=== PATIENT | male | born 1970 | race Caucasian/White ===

== ENCOUNTER 2022-05-17 12:22 | Outpatient (CLI) | payer OTHER, SELFPAY | END 2022-05-17 12:23 | disposition home or self-care (01) | LOC: LAB 12:26 | PROVIDERS: PCP Electrodiagnostic Medicine; Visit Provider Urology | DX: R97.20 Elevated prostate specific antigen [PSA] (principal) | CPT/HCPCS: 36415; 84153 ==

== ENCOUNTER → 2022-05-19 12:29 | Outpatient (BNVA) | payer OTHER, SELFPAY | PROVIDERS: PCP Electrodiagnostic Medicine; Visit Provider Urology | DX: R97.20 Elevated prostate specific antigen [PSA] (principal) | CPT/HCPCS: 81003 ==

== ENCOUNTER 2022-12-18 13:23 | Outpatient (CLI) | payer OTHER, SELFPAY ==
[2022-12-18 14:28] LABS: Prostate Specific AG Urology 4.95 ng/mL (0-4)
== END 2022-12-18 13:24 | disposition home or self-care (01) ==
LOC: LAB 13:26
PROVIDERS: PCP Electrodiagnostic Medicine; Visit Provider Urology
DX: R97.20 Elevated prostate specific antigen [PSA] (principal)
CPT/HCPCS: 84153

== ENCOUNTER → 2022-12-26 15:33 | Outpatient (BNVA) | payer OTHER, SELFPAY | PROVIDERS: PCP Electrodiagnostic Medicine; Visit Provider Urology | DX: R97.20 Elevated prostate specific antigen [PSA] (principal) | CPT/HCPCS: 81003 ==

== ENCOUNTER 2023-09-19 12:30 | Outpatient (CLI) | payer OTHER, SELFPAY ==
--- NOTE | 2023-09-19 13:00 | MR_ITS ---
WS: [id number] MRI LEFT HIP WITHOUT CONTRAST. COMPARISON: 08/06/2023 Multiplanar, multisequence imaging is performed without contrast. Moderate to severe narrowing of the joint space of the LEFT hip. There is loss of cartilage. No signi ficant remodeling of the femoral head at this time. There is marrow edema extending from the superior medial femoral head inferiorly through the neck of the femur. There is bone upon bone of the superio r femoral head and acetabulum. There are adjacent corresponding to areas of marrow edema in the aceta bulum and also the femoral head. No typical changes for osteonecrosis. Mild osteophytic ridging aroun d the acetabulum. There is also small amount of increased fluid in the joint space as compared to the RIGHT hip. No definite labral tear is identified. No muscle edema or atrophy. IMPRESSION: 1. Moderate osteoarthritic changes involving the LEFT hip joint. 2. Marrow edema involving the femoral head and neck and extending into the acetabulum where there is bone upon bone contact. Loss of the cartilage surrounding the head of the femur. 3. Small joint effusion LEFT hip.
== END 2023-09-19 12:31 | disposition home or self-care (01) ==
LOC: RAD 12:30
PROVIDERS: PCP Electrodiagnostic Medicine; Visit Provider Family Medicine
DX: S73.192A Other sprain of left hip, initial encounter (principal); R93.6 Abnormal findings on diagnostic imaging of limbs; M94.8X8 Other specified disorders of cartilage, other site; X58.XXXA Exposure to other specified factors, initial encounter
CPT/HCPCS: 73721

== ENCOUNTER → 2024-12-02 13:38 | Outpatient (BNVA) | payer OTHER, SELFPAY | PROVIDERS: PCP Electrodiagnostic Medicine; Visit Provider Emergency Medicine | DX: B34.9 Viral infection, unspecified (principal) | CPT/HCPCS: 87400 ==